=== PATIENT | male | born 1995 | race Caucasian/White ===

== ENCOUNTER 2016-11-21 15:42 | Emergency (ER) | payer BC, OTHER ==
[2016-11-21 15:48] VITALS: BP 142/76
--- NOTE | 2016-11-21 16:15 | UC ---
General HPI - HPI Summary HPI Summary: Patient presents with complaints of nausea and vomiting x 3 days. He states that the symptoms came on quickly. He states that he was able to tolerate broth this morning. He denies any recorded or tactile fever. He denies abdominal pain , fever, chills, or diarrhea. He reports no recent travel, ill contacts, or antibiotic therapies. Reports normal BM two days ago. - History of Current Complaint Chief Complaint: UCGI Stated Complaint: FEVER,NAUSEA,VOMITING Time Seen by Provider: 11/21/16 16:00 Hx Obtained From: Patient Onset/Duration: Sudden Onset, Lasting Days Timing: Intermittent Episodes Lasting: Pain Intensity: 0 Associated Signs & Symptoms: Positive: Nausea, Vomiting - Allergy/Home Medications Allergies/Adverse Reactions: Allergies Allergy/AdvReac Type Severity Reaction Status Date / Time Amoxicillin Allergy Hives/Diff. Verified 11/21/16 15:49 Breathing/I tching Penicillins [PCN] Allergy Hives/Diff. Verified 11/21/16 15:49 Breathing/I tching PMH/Surg Hx/FS Hx/Imm Hx Previously Healthy: Yes - Surgical History Surgical History: None - Family History Known Family History: Positive: None - Social History Occupation: Student Alcohol Use: Occasionally Alcohol Amount: per EMS "2-3 shots tonight" Substance Use Type: Prescribed Smoking Status (MU): Never Smoked Tobacco - Immunization History Most Recent Influenza Vaccination: THIS FALL Most Recent Tetanus Shot: up to date Most Recent Pneumonia Vaccination: unknown Review of Systems Gastrointestinal: Vomiting, Nausea All Other Systems Reviewed And Are Negative: Yes Physical Exam Triage Information Reviewed: Yes Appearance: Well-Appearing Vital Signs: Initial Vital Signs Temp 98.6 F 11/21/16 15:44 Pulse 72 11/21/16 15:44 Resp 18 11/21/16 15:44 BP 142/76 11/21/16 15:44 Pulse Ox 100 11/21/16 15:44 Vital Signs Reviewed: Yes Eye Exam: Normal ENT Exam: Normal Neck exam: Normal Respiratory Exam: Normal Cardiovascular Exam: Normal Abdominal Exam: Normal Course/Dx - Course Course Of Treatment: Patient presents with 3 days of intermittent episodes on nausea and vomiting, or just dry heaving. He has a nontoxic appearance, normal viral signs and and benign abdominal examination. He has no signifiicant past medical history of abdominal surgeries. His symtpoms came on suddenly,and as of this morning he did tolerate broth without vomiting.I feel his symtpoms are viral and RX Pepcid 10 mg bid, and brat diet, advance as tolerated. If for any reason his symtpoms worsen, persist and do not improve as anticipated I recommend to go to the ER for re-evalaution. I do not feel an emergent visit is indicated at this time. - Differential Dx - Multi-Symptom Differential Diagnoses: Other - viral syndrome Provider Diagnoses: viral syndrome. nausea. vomiting Discharge - Discharge Plan Condition: Stable Disposition: HOME Prescriptions: Famotidine [Pepcid AC] 10 mg PO BID #14 tab Patient Education Materials: Acute Nausea and Vomiting (ED) Referrals: No Primary Care Phys,NOPCP [Primary Care Provider] -
== END 2016-11-21 16:34 | disposition home or self-care (01) ==
LOC: UCEAST 15:42
DX: B34.9 Viral infection, unspecified (principal); R11.2 Nausea with vomiting, unspecified; Z88.0 Allergy status to penicillin; Z88.3 Allergy status to other anti-infective agents
CPT/HCPCS: 99212; G0463